=== PATIENT | female | born 1955 | race American Indian/Alaskan Native ===

== ENCOUNTER 2017-12-23 11:51 | Emergency (ER) | payer MEDICARE, OTHER ==
[2017-12-23 12:02] VITALS: BP 135/78
== END 2017-12-23 12:47 | disposition left against medical advice (07) ==
LOC: ED 11:51
DX: T78.40XA Allergy, unspecified, initial encounter (principal); Z53.21 Procedure and treatment not carried out due to patient leaving prior to being seen by health care provider